=== PATIENT | female | born 1990 | race Caucasian/White ===

== ENCOUNTER 2016-06-10 07:09 | Emergency (ER) | payer OTHER ==
[2016-06-10 07:27] VITALS: BP 122/66; PULSE 56; RESP 18; TEMP 98; O2SAT 99
--- NOTE | 2016-06-10 07:31 | CPEKG ---
Heart Rate: 56 RR Interval: 1071 P-R Interval: 160 QRSD Interval: 94 QT Interval: 424 QTC Interval: 410 P [place]: 69 QRS [place]: 36 T Wave [place]: 60 EKG Severity - NORMAL ECG - EKG Impression: SINUS RHYTHM Electronically Signed By: Jacobo Lopez 10-Jun-2016 07:38:58
--- NOTE | 2016-06-10 07:35 | UCPHY ---
H & P Patient Type: New Chief Complaint Nursing Narrative: c/o Mid sternal CP since 1700 last pm while wathcing TV - denies SOB- states nothing make it better or worse Time Seen by Provider: 06/10/16 07:27 HPI/ROS: CHIEF COMPLAINT: Chest pain HISTORY OF PRESENT ILLNESS: The patient is a 26-year-old female who comes to the Urgent Care complaining of reproducible midsternal pain. It hurts worse with palpation or movement of her left arm. She states that she thinks she may have pulled something while she was rock climbing in the Gym yesterday. It has hurt since last night. She has not had a fever or recent illness. She does not have any history of cardiac or pulmonary disease. Is not worsened by positioning. No shortness of breath. She is not tachycardic or hypoxic. She has not been traveling. She does not take hormones. She does not smoke. No leg pain or swelling. She denies risk of . She has had symptoms of heartburn in the past but states this feels different. She thinks that it may be primarily anxiety. REVIEW OF SYSTEMS: Constitutional: denies: chills, fever, recent illness, recent injury EENTM: denies: blurred vision, double vision, nose congestion Respiratory: denies: cough, shortness of breath Cardiac: See HPI denies: irregular heart rate, lightheadedness, palpitations Gastrointestinal/Abdominal: denies: abdominal pain, diarrhea, nausea, vomiting, blood streaked stools Genitourinary: denies: dysuria, frequency, hematuria, pain Musculoskeletal: See HPI Skin: denies: lesions, rash, jaundice, bruising Neurological: denies: headache, numbness, paresthesia, tingling, dizziness, weakness Hematologic/Lymphatic: denies: blood clots, easy bleeding, easy bruising Immunologic/allergic: denies: HIV/AIDS, transplant EXAM: GENERAL: Well-appearing, well-nourished and in no acute distress. HEAD: Atraumatic, normocephalic. EYES: Pupils equal round and reactive to light, extraocular movements intact, sclera anicteric, conjunctiva are normal. ENT: TMs normal, nares patent, oropharynx clear without exudates. Moist mucous membranes. NECK: Normal range of motion, supple without lymphadenopathy or JVD. LUNGS: Breath sounds clear to auscultation bilaterally and equal. No wheezes rales or rhonchi. HEART: Regular rate and rhythm without murmurs, rubs or gallops. ABDOMEN: Soft, nontender, normoactive bowel sounds. No guarding, no rebound. No masses appreciated. BACK: No CVA tenderness, no spinal tenderness, step-offs or deformities EXTREMITIES: Normal range of motion, no pitting or edema. No clubbing or cyanosis. NEUROLOGICAL: Cranial nerves II through XII grossly intact. Normal speech, normal gait. 5/5 strength, normal movement in all extremities, normal sensation PSYCH: Normal mood, normal affect. SKIN: Warm, dry, normal turgor, no visible rashes or lesions. Source: Patient Exam Limitations: No limitations - Personal History LMP (Females 10-55): 1-7 Days Ago Current Tetanus Diphtheria and Acellular Pertussis (TDAP): Yes - Medical/Surgical History Hx Asthma: No Hx Chronic Respiratory Disease: No Hx Diabetes: No Hx Cardiac Disease: No Hx Renal Disease: No Hx Cirrhosis: No Hx Alcoholism: No Other PMH: denies - Family History Significant Family History: No pertinent family hx - Social History Smoking Status: Never smoked Alcohol Use: None Drug Use: None Constitutional: Initial Vital Signs Temperature (C) 36.6 C 06/10/16 07:24 Heart Rate 56 L 06/10/16 07:24 Respiratory Rate 18 06/10/16 07:24 Blood Pressure 122/66 H 06/10/16 07:24 O2 Sat (%) 99 06/10/16 07:24 O2 Delivery Mode Room Air Allergies/Adverse Reactions: menocycline Allergy (Uncoded 06/10/16 07:23) Home Medications: Medication Instructions Recorded NK [No Known Home Meds] 06/10/16 Medical Decision Making - Diagnostics EKG Interpretation: An EKG obtained and was read and documented in trace view. Please see trace view for full reading and report. Sinus rhythm, no acute ischemic changes, no signs of right heart strain. ED Course/Re-evaluation: The patient is PERC score is 0. She has reproducible chest pain consistent with rock climbing in the gym yesterday. We discussed her EKG results which are reassuring. At this point we agreed to stop further evaluation. Considering her age and lack of risk factors she has extremely low risk for cardiac disease as well as PE. She does not have any infectious symptoms. We discussed indications for returning. She also asked for referral to a primary care physician. Differential Diagnosis: Partial list of the Differential diagnosis considered include but were not limited to; musculoskeletal pain, GERD, peptic ulcer disease, and although unlikely based on the history and physical exam, I also considered PE, myocardial infarction, dissection, pneumonia, pericarditis, arrhythmia. I discussed these differential diagnoses and the plan with the patient as well as the usual and expected course. The patient understands that the diagnosis is provisional and that in medicine we are not always correct and that further workup is often warranted. Usual and customary warnings were given. All of the patient's questions were answered. The patient was instructed to return to the emergency department should the symptoms at all worsen or return, otherwise to followup with the physician as we discussed. Departure - Departure Disposition: Home, Routine, Self-Care Clinical Impression: Chest wall pain Condition: Fair Instructions: Chest Wall Pain (ED) Referrals: Julissa Ovalle MD [Medical Doctor] - As per Instructions - PQRS PQRS Measurement: Not applicable
== END 2016-06-10 07:39 | disposition home or self-care (01) ==
LOC: CED 07:09
DX: R07.89 Other chest pain (principal)
CPT/HCPCS: 93010-PO; 99204-PO; G0463-PO